=== PATIENT | female | born 1975 | race Caucasian/White ===

== ENCOUNTER → 2019-01-26 11:58 | Outpatient (CLI) | payer OTHER, SELFPAY ==
[2019-01-10 15:37] VITALS: BMI 53.1
== END ==
PROVIDERS: Referring Provider Internal Medicine Cardiovascular Disease; Visit Provider Internal Medicine Cardiovascular Disease
DX: I45.10 Unspecified right bundle-branch block (principal); R94.31 Abnormal electrocardiogram [ECG] [EKG]; Z82.49 Family history of ischemic heart disease and other diseases of the circulatory system
CPT/HCPCS: 93017

== ENCOUNTER → 2019-01-30 16:37 | Outpatient (CLI) | payer OTHER, SELFPAY ==
[2019-01-10 15:37] VITALS: BMI 53.1
--- NOTE | 2019-01-30 09:22 | STRESSREP ---
Stress Test Report Treadmill EKG report: Resting EKG: Normal sinus rhythm, normal axis, normal intervals, no evidence of previous myocardial infarction. Treadmill EKG: Patient exercise according to a Hector protocol for 4 minutes and 30 seconds achieving a maximum workload of 6.40 METS. Patient's resting heart rate was 82 bpm and gabriel to maximum 157 bpm. This represents 89% of the maximal age-predicted heart rate. Resting blood pressure was 142/88, and gabriel to maximum of 172/92. Test was terminated due to the attainment of target heart rate, dyspnea, and chest discomfort. During exercise the patient's heart rate increased as expected. Patient had evidence of upsloping ST segment depression which did not quite reach criteria for ischemia. No arrhythmias noted. Conclusions: Abnormal, adequate treadmill EKG. Positive for ischemia by chest pain criteria. No arrhythmias noted. Below average exercise capacity for age. Appropriate blood pressure response to exercise. Recommend clinical correlation or alternative mode of testing if coronary occlusive disease is strongly suspected. No complications.
[2019-01-30 17:20] LABS: Hematocrit 39.3 % (37-47); Mean Corp Hgb Conc 33.1 g/gl (32-36); Mean Corpuscular Hgb 31.2 pg (27.0-32.0); Mean Corpuscular Volume 94.2 fL (81-99); Mean Platelet Vol. 9.7 fl (6.2-12.0); Platelet Count 485 K/mm3 (150-450); RBC Distribution Width CV 14.3 % (11.6-14.6); RBC Distribution Width SD 49.1 fl (35.1-43.9); Red Blood Count 4.17 M/mm3 (4.2-5.4); White Blood Count 14.1 K/mm3 (4.4-11.0)
[2019-01-30 17:21] LABS: Scan Indicated on CBC? Y/N NO
[2019-01-30 17:30] LABS: Partial Thromboplast Time 27.7 Seconds (24.1-36.2)
[2019-01-30 17:53] LABS: Anion Gap 8 (5-15); BUN 11 mg/dL (7-18); BUN/Creat Ratio 13.1 RATIO (10-20); Chloride 105 mmol/L (98-107); Creatinine, Serum 0.84 mg/dL (0.55-1.02); EST Glomerular Filtration Rate 78 mL/min (>60); Est Glom Filt Rate - Afr Amer 94 mL/min (>60); Glucose 104 mg/dL (74-106); Potassium 3.8 mmol/L (3.5-5.1); Sodium Level 139 mmol/L (136-145)
== END ==
PROVIDERS: Referring Provider Internal Medicine Cardiovascular Disease; Visit Provider Internal Medicine Cardiovascular Disease
DX: R94.31 Abnormal electrocardiogram [ECG] [EKG] (principal); R94.39 Abnormal result of other cardiovascular function study; R07.9 Chest pain, unspecified; Z82.49 Family history of ischemic heart disease and other diseases of the circulatory system
CPT/HCPCS: 36415; 80048; 85027; 85610; 85730

== ENCOUNTER 2019-02-08 08:00 | Day surgery (SDC) | payer OTHER, SELFPAY ==
[2019-01-10 15:37] VITALS: BMI 53.1
--- NOTE | 2019-01-10 16:13 | HP_ITS ---
HPI HPI Surgical H&P: Yes Details: Mrs. Enciso is a very pleasant 43-year-old morbidly obese female with a history of obstructive sleep apnea, history of Jonah fundoplication for what sounds like a hiatal hernia surgery, history of splenectomy, history of tubal ligation and history of cholecystectomy. She was originally referred to us for abnormal EKG. Specifically the patient complained of mid back pain on and off for the past 6 months, which last a few seconds to a few minutes and occasionally an hour or 2, but no overt chest pain. She denies any exertional symptoms, reports that it is improved with ibuprofen and chiropractor manipulation. An EKG was performed at [facility] in [place] on 12/19/18 which showed normal sinus rhythm, normal axis, normal intervals, and incomplete right bundle branch block which apparently was new. Patient states the pain is worse at night when she is laying down and can wake her up at night. She does have a strong family history of cardiac disease. Specifically her mother of an acute myocardial infarction at age 53, although she was a smoker. In addition her father 3 weeks after his bypass surgery at age 55 but also was a smoker. She has 1 sister who is alive and well. Patient herself has never smoked. Patient underwent a 2D echo with Doppler at an outside facility on 12/29/18 which an EF of 60%, unable to quantitate RVSP due to lack of tricuspid regurgitation. In her office today her blood pressure is 130/70, and pulse is 96 and regular. Her physical exam demonstrates no point tenderness along her spine, I am unable to replicate her back pain with manipulation, clear lungs bilaterally, regular rate and rhythm, normal S1/S2, no S3 or S4. No edema noted. Lipids are pending. EKG dated 12/19/18 shows normal sinus rhythm, normal axis, normal intervals, incomplete right bundle branch block, no previous myocardial infarction noted. Intake Vital Signs 01/10/19 Height 5 ft 01/10/19 Weight: 272 lb 01/10/19 Body Mass Index (BMI) 53.1 01/10/19 Blood Pressure 130/70 H 01/10/19 Blood Pressure Location Lt brachial 01/10/19 Blood Pressure Position Sitting 01/10/19 Respiratory Rate 20 H 01/10/19 Pulse Rate 96 01/10/19 Pulse Source Auscultation Intake Visit Reasons: RBBB, FAMILY HX (DR SONJA SHORE) Bus Washer Required: No Accompanied by: Sister Is patient in pain?: No Allergies Penicillins Allergy (Intermediate, Verified 01/10/19 15:38) Rash, itching cefdinir Adverse Reaction (Intermediate, Verified 01/10/19 15:38) Diarrhea Medications albuterol sulfate HFA 90 mcg/actuation aerosol inhaler 2 puff INHALATION Q6H PRN 01/04/19 [History Confirmed 01/04/19] ibuprofen 200 mg tablet 200 mg PO TID-QID PRN 01/04/19 [History Confirmed 01/04/19] multivitamin tablet 1 tab PO DAILY 01/04/19 [History Confirmed 01/04/19] PFSH Medical History Abnormal EKG (Acute) Incomplete right bundle branch block (Acute) Obstructive sleep apnea (Chronic) Intestinal malabsorption (Chronic) GERD (gastroesophageal reflux disease) (Chronic) Diverticulitis (Chronic) Social History Smoking Status: Never smoker ROS Const Const: Positive for other (Referred by PCP for incomplete RBBB, ST changes. Normal echo.); negative for fatigue, weakness, body ache, fever(s), headache(s), chills, frequent falls, night sweats, daytime sleepiness, difficulty sleeping, excessive sweating, weight gain, weight loss, increased appetite, poor appetite or anorexia Eyes Eyes: Negative for blind spots, loss of peripheral vision, transient loss of vision, blurry vision, change in vision, double vision, floaters, tunnel vision or other ENT ENT: Negative for headache(s), dizziness, hearing loss, tinnitus, Nosebleed/epistaxis, balance problems, post nasal drip, lip swelling, tongue swelling, bleeding gums, hoarseness, neck pain, dry mouth or other Cardio Chest Pain: No (Does feel pain in middle of back, stabbing) Frequency: daily (usually in am upon awakening but has other times also), more than once a day Character: sharp Duration: brief (lasts seconds to minutes but sometimes about an hour) Exacerbation: other (spontaneous) Relieving: other (spontaneous) Palpitations: Yes feels like its: fast Edema: Bilateral (feet get puffy by end of day. No leg edema) Muscle aches with walking: None Resp Respiratory: Positive for SOB with activity (Has GERD and contributes it to that.); negative for SOB at rest, SOB orthopnea\SOB lying down, Cough, Coughing up blood/hemoptysis, chest congestion, pain on inspiration, snoring, stridor, wheezing, crackles, paroxysmal nocturnal dyspnea or other GI GI: Negative nausea, vomiting, heartburn, constipation, belching, bloating, cramping, vomiting blood/hematemesis, bright, red blood in stools, black,tarry stools, loose stools, Difficulty Swallowing or other : Negative for hematuria, frequent nighttime urination/ nocturia, erectile dysfunction or abnormal vaginal bleeding Musc Musc: Negative for muscle aches/ myalgia, muscle weakness, joint pain or balance problems Skin Skin: Negative redness, non-healing lesions, rash, unusual bruising, skin ulcer, wounds, jaundice or other Neuro Neuro: Negative for dizziness, lightheadedness, near syncope, syncope, orthostatic symptoms, frequent falls, headache(s), weakness, confusion, memory loss, restless legs, blurry vision, double vision, vertigo, seizures, lack of coordination or other Cameron Hematologic/Lymphatic: Negative for easy bleeding, easy bruising, enlarged lymph nodes or other Endo Endo: Negative for fatigue, cold intolerance, heat intolerance, excessive sweating, flushing, increased thirst/drinking, increased hunger, hair loss, hair growth or other Psych Psych: Negative for anxiety, depression, thoughts of harming anyone, thoughts of harming yourself, visual hallucinations, panic attacks or audible hallucinations Allergy Allergy/Immunology: Negative for throat swelling, Negative for tongue swelling, Negative for hives, Negative for rash, Negative for lip swelling Cardiology Exam Const Appearance: cooperative, healthy appearing and no acute distress Nutritional Appearance: well nourished Orientation: alert, oriented x3 and oriented to person Head Head: normal to inspection, normocephalic and atraumatic Nose: external nose normal Face and Sinus: face symmetric Mouth: oral mucosae normal Eyes General: appearance normal, both eyes and all related structures Eyelids: eyelids normal Conjunctivae: conjunctivae normal Pupils: PERRL and normal by confrontation EOM: EOM intact bilaterally Neck Neck: normal visual inspection and full ROM Carotids: normal carotid upstroke Chest Chest inspection: normal inspection of the chest Auscultation: Bilateral: Clear to Auscultation Cardio Palpation: normal PMI Rate: regular rate Rhythm: regular rhythm Heart sounds: S1 normal and S2 normal GI GI: normal to inspection, no hepatosplenomegaly and bowel sounds present Neuro General: alert, awake, oriented x3, CN's II-XI intact bilaterally and moves all extremities Skin Skin: no rashes or lesions noted Extremities Pulses: Normal: Right Femoral Pulse, Left Femoral Pulse, Right Dorsalis Pedis Pulse, Left Dorsalis Pedis Pulse, Right Posterior Tibial Pulse, Left Posterior Tibial Pulse, Right Radial Pulse, Left Radial Pulse Lower Extremity Edema: None: Bilateral Psych Psychological: normal affect Assessment & Plan 1. Abnormal EKG R94.[address] and T wave changes Plan 1. Abnormal EKG: Patient has no exertional chest pain, angina, or exertional back pain symptoms. Her symptoms in her back appear to be more related to recumbency and may be a byproduct of previous hiatal hernia surgery or intrinsic degenerative joint disease of her spine. Nonetheless the patient is a significant premature coronary artery disease history in her father and mother, both of which she was smoked. The patient is a non-smoker. In order to better evaluate the patient's risk I recommended that she undergo a treadmill echocardiogram to evaluate for possible ischemia. Patient states that she can walk on a treadmill without difficulty. If this is grossly abnormal for ischemia, she may require a diagnostic coronary angiogram. Would not recommend baby aspirin at this time. If her stress test is negative I would refer her to her primary care physician for possible neurological consult and/or MRI of her spine to determine if she has any issues with her spine. Patient may also require a CT scan of her chest to determine if she has had a failed hiatal hernia surgery repair to explain some of her back pain. 2. Return office in 6 months. This note was generated using a voice recognition system and there may be incorrect words, spelling or punctuation that were not noted when reviewing the office note prior to saving. Orders Orders: Lipid Profile Today Liver Profile Today Stress Test Echo w/o Contrast Today Plan Detail Follow Up +6M (Mayito) Coding Level of Care Code Off vis,new,level 4 Diagnoses Abnormal EKG R94.31 Coding Level of Care Code Off vis,new,level 4 Diagnoses Abnormal EKG R94.31 01/10/19 1603 <Electronically signed by Nicolás Edmond MD> Date Nicolás Edmond MD
[2019-02-07 14:32] VITALS: BMI 53.1
[2019-02-08 09:02] LABS: Internal QC Validated? YES +Cl - CLEAR BKGD
[2019-02-08 09:11] LABS: Pregnancy, Serum, hCG Quali. NEGATIVE Negative
--- NOTE | 2019-02-08 10:34 | CL.D_ITS ---
Patient Name: DAVID AUSTIN Study Date: 02/08/2019 Performing: Nicolás Edmond MD Ht: 59.84 inches 152 cm : 1975 Wt: 271.17 lbs 123 kg Age: 44 Gender: female BSA: 2.12 PROCEDURE(S) PERFORMED PP36-[id number]/COR/LV CLINICAL PROFILE AND INDICATIONS Indications: New Onset Angina <= 2 months, Evaluation for Exercise Clearance, Suspected CAD Heart Failure: None Stress/Imaging Stress Echocardiogram: Yes Result: Positive Low RiskStress Echocardiogram: Positiv e Low Risk Angina Classification Anginal Classification w/in 2 Weeks: CCS I CAD Presentations: Symptom unlikely to be ischemic. Comorbidities/Risk Factors: Hypertension CONCLUSIONS Normal LV size, wall motion,and systolic function Normal Left Ventricular systolic function LVEF: by LV gram 65 % Normal Left Ventricular End Diastolic Pressure RECOMMENDATIONS No recommendations -> Normal findings D/c asa and plavix,. Begin exercise program. DESCRIPTION OF PROCEDURE The patient arrived to the procedure lab. The risks and benefits of the procedure as well as a full d escription of our services here and current unavailability of surgical backup were fully explained to the patient and/or their significant other prior to the catheterization. The Timeout was completed, verifying the correct patient and procedure. The patient's procedural site was prepped and draped in the usual fashion. Local anesthetic was given subcutaneously to right groin region with Lidocaine 2%. Using a modified Seldinger technique, arterial access was obtained via the right femoral artery, a 4 Fr sheath was inserted Left Coronary Artery selective angiography was performed in multiple views us ing a 4 Fr. JL5 catheter. Right Coronary Artery selective angiography was then performed in multiple views using a 4 Fr. 3DRC catheter. Left Ventriculography was performed in MCNEIL projection using a 4 Fr . Pigtail catheter. LV to AO pullback pressures were then recorded.The arterial sheath was pulled and manual compression applied until hemostasis is achieved. CORONARY ANGIOGRAPHY DOMINANCE: Left Dominant LEFT HEART ASSESSMENT Left Ventricular Ejection Fraction: by LV Gram 65 % Normal LV wall motion Normal Left Ventricular systolic function Normal Left Ventricular systolic function LEFT MAIN: Angiographically normal LEFT ANTERIOR DESCENDING ARTERY: Angiographically normal CIRCUMFLEX ARTERY: Angiographically normal RIGHT CORONARY ARTERY: Angiographically normal COMPLICATIONS No Complications PROCEDURE MEDICATIONS Oxygen: 2 L/min via nasal cannula SUMMARY OF HEMODYNAMIC DATA Time AIR REST ECG 08:36:07 AO 123/73 (94) SA 10:12:49 LV 147/-16, 11 10:18:18 LV 149/-16, 9 10:18:24 LVp 152/-18, 17 10:18:28 AOp 141/71 (102) 10:18:33 Signed By Nicolás Edmond MD On 02/08/2019 10:32:54 Nicolás Edmond MD
== END 2019-02-08 14:45 | disposition home or self-care (01) ==
LOC: CLSP 08:01
PROVIDERS: Referring Provider Internal Medicine Cardiovascular Disease; Visit Provider Internal Medicine Cardiovascular Disease
DX: R94.31 Abnormal electrocardiogram [ECG] [EKG] (principal); I45.10 Unspecified right bundle-branch block; I10 Essential (primary) hypertension; E66.01 Morbid (severe) obesity due to excess calories; Z68.43 Body mass index [BMI] 50.0-59.9, adult; Z82.49 Family history of ischemic heart disease and other diseases of the circulatory system
CPT/HCPCS: 84703; 93458; J7040; C1769; C1894; Q9967

== ENCOUNTER → 2019-07-14 10:41 | Outpatient (CLI) | payer OTHER, SELFPAY ==
[2019-02-07 14:32] VITALS: BMI 53.1
[2019-07-14 12:05] LABS: AST(SGOT) 14 U/L (15-37); Alanine Aminotransfer ALT/SGPT 27 U/L (13-56); Alkaline Phosphatase 109 U/L (45-117); Bilirubin, Direct 0.09 mg/dL (0.00-0.30); Cholesterol 207 mg/dL (200); Globulin 4.5 g/dL (2.2-4.2); High Density Lipoprotein 60 mg/dL; Protein, Total 7.5 g/dL (6.4-8.2); Triglycerides 136 mg/dL; Very Low Density Lipoprotein 27 mg/dL (5-40)
== END ==
PROVIDERS: Referring Provider Internal Medicine Cardiovascular Disease; Visit Provider Internal Medicine Cardiovascular Disease
DX: E78.5 Hyperlipidemia, unspecified (principal)
CPT/HCPCS: 36415; 80061; 80076

== ENCOUNTER 2020-01-22 05:59 | Day surgery (SDC) | payer OTHER, SELFPAY ==
[2019-08-04 13:18] VITALS: BMI 52.5
--- NOTE | 2020-01-18 16:49 | EKG12_ITS ---
Test Reason : PREOP Blood Pressure : / mmHG Vent. Rate : 087 BPM Atrial Rate : 087 BPM P-R Int : 122 ms QRS Dur : 080 ms QT Int : 378 ms P-R-T Axes : 049 -07 007 degrees QTc Int : 454 ms Normal sinus rhythm Nonspecific ST abnormality Abnormal ECG Confirmed by NATHALIE POOLE, COSTA ([id number]), school photograph editor BANDAR PLUNKETT ([id number]) on 01/22/2020 11:01:33 AM Referred By: Lenin Werner Confirmed By:MERE ZELAYA MD
[2020-01-18 17:15] LABS: Hematocrit 40.1 % (37-47); Hemoglobin 13.1 g/dL (12.0-15.0); Mean Corp Hgb Conc 32.7 g/dL (32-36); Mean Corpuscular Hgb 30.5 pg (27.0-32.0); Mean Corpuscular Volume 93.5 fL (81-99); Mean Platelet Vol. 9.2 fl (6.2-12.0); Platelet Count 517 K/mm3 (150-450); RBC Distribution Width CV 14.3 % (11.6-14.6); RBC Distribution Width SD 48.8 fl (35.1-43.9); Red Blood Count 4.29 M/mm3 (4.2-5.4); White Blood Count 15.6 K/mm3 (4.4-11.0)
[2020-01-18 17:45] LABS: ALB/GLOB Ratio 0.7 RATIO (0.9-2.4); AST(SGOT) 14 U/L (15-37); Alanine Aminotransfer ALT/SGPT 20 U/L (13-56); Albumin, Serum 3.4 g/dL (3.2-5.0); Alkaline Phosphatase 126 U/L (45-117); Anion Gap 9 (5-15); BUN 13 mg/dL (7-18); BUN/Creat Ratio 18.1 RATIO (10-20); Calcium,Total 9.5 mg/dL (8.5-10.1); Chloride 105 mmol/L (98-107); Creatinine, Serum 0.72 mg/dL (0.55-1.02); EST Glomerular Filtration Rate 93 mL/min (>60); Est Glom Filt Rate - Afr Amer 113 mL/min (>60); Globulin 4.6 g/dL (2.2-4.2); Glucose 73 mg/dL (74-106); Partial Thromboplast Time 28.7 Seconds (24.1-36.2); Potassium 3.8 mmol/L (3.5-5.1); Sodium Level 138 mmol/L (136-145)
--- NOTE | 2020-01-21 20:56 | PCM.HP.BLA ---
History and Physical Date of Admission: 01/22/20 Surgical History and Physical Trinity Enciso, a 44 year old female 1 0 0 0 1, presents for RAVH/BSO on January 22, 2020 at 7:30. -- Menorrhagia; Complex EM Hyperplasia -- Menorrhagia which began months ago. Trinity claims it started gradually and has been present 9 days. It occurs every day. It is located in the Uterus. Severity is worsening; Associated signs and symptoms are pelvic cramping and fatigue. ULTRASOUND: UTERUS: 8.8 x 4.3 x 4.8 cm ; ENDOMETRIAL ECHO: 0.9 cm. ; RIGHT OVARY: 4.1 x 2.8 x 2.8 cm and contains a 2.7 x 2.2 x 2.2 cm simple cyst; LEFT OVARY: Not seen vaginally or abdominally. EMBx showed complex EM hyperplasia without atypia. MEDICATIONS HISTORY: Patient is also takin. MVI, qd 2. metformin ER 500 mg tablet,extended release 24 hr, 3 tablets po daily ALLERGIES: Pcn, Rash, Penicillins, Rash, Ceftin and Hives and/or rash Infections - none Illnesses - depression, IBS, Accidents - no injuries of consequence Hospitalizations - see surgery Review of Systems: GENERAL - Denies fever, or chills SKIN - Denies skin changes EYES - Denies visual changes EARS - Denies difficulty hearing NOSE - Denies nasal congestion or bleeding MOUTH - Denies sore throat or difficulty swallowing NECK - Denies pain or swelling RESPIRATORY - Denies shortness of breath or wheezing CARDIOVASCULAR - Denies palpitations or chest pain GASTROINTESTINAL - Denies nausea, vomiting, diarrhea, constipation GENITOURINARY - Denies dysuria, frequency of urination, incontinence of urine MUSCULOSKELETAL - Denies joint or muscle pain NEUROLOGICAL - Denies localized numbness or weakness PSYCHIATRIC - Denies depression or anxiety ENDOCRINE - Denies heat or cold intolerance, weight loss or gain HEMATO-IMMUNOLOGIC - Denies excessive bleeding with cuts SOCIAL HISTORY: Alcohol Use - denies drinking Smoking - denies smoking Diet - no special diet Lifestyle - moderate stress lifestyle and Exercise - minimal Seat Belt Use - always Employer - [employer] Residence Job Description - director of academic Illicit Drug Use - denies use of street drugs Sexual Activity - Residence - owns a home Hours Worked - 35 Spouse-Sig Other Name - Dinesh Spouse-Sig Other Occupation - Factory Children Name(s) - Ale (11/2006) Control - Prior Tubal FAMILY HISTORY: Family history of Heart Disease. MENSTRUAL HISTORY: LMP Known?- Approximate-Month Known Amount/Duration - 3-4 days, Regularity - Irregular, Frequency - variable days, Prior Menses - 11/29/2015, LMP - 01/15/20, Age Onset Menarche - 12 PAST PREGNANCIES: Total Pregnancies - 1; Full Term Pregnancies - 1; Premature - 0; Abortions, Induced - 0; Abortions, Spontaneous - 0; Ectopics - 0; Multiple Births - 0; Living Children - 1 SURGICAL HISTORY: 1. 11/29/2006 and Tubal ; Lenin Werner M.D. 2. Rt ear skin graft-95 3. frankie-1999 4. 2010 Splenectomy 5. 2010 Hernia Repair PHYSICAL EXAM BP- 132/80 Sitting, Right arm, large cuff Weight- 276.0 lbs Height- 61.5 inch BMI:51.41 CONSTITUTIONAL - NAD, well nourished, and well developed SKIN - No rash, lesions, or ulcers HEENT - normocephalic, atraumatic, sclerae anicteric LUNGS - normal respiratory rate and rhythm ABDOMEN - Without hepatosplenomegaly, distention, masses, rebound, or guarding; normal bowel sounds; has a hernia EXTREMITIES - No edema or calf tenderness NEUROLOGICAL - normal gait, normal balance, normal motor PSYCHIATRIC - A and O to time, place, person, mood and affect External Genital Vagina - non-tender without lesions Urethra/Urethral Meatus - non-tender Bladder - non-tender Vagina - vaginal ivy are pink and moist without loss of rugae and no evidence of atropy Cervix - without cervical motion tenderness and has normal size and features without evident lesions Uterus - enlarged uterus 8 wks, wt 125-150 g Adnexa - clear without masses or tenderness ASSESSMENT/PLAN: Menorrhagia, complex EM hyperplasia. Discussed options for treatment and patient desires proceeding with RAVH/BSO. Discussed RBAs including need for HRT and open procedure and all questions answered. Essential Procedure Criteria Procedure Essential: Yes Criteria Note: On 12/12/2019 the [facility] ([facility]) Public Order signed by [facility] Director Hiwot Dean M.D., regarding the Management of Non-Essential Surgeries and Procedures for the purpose of preserving Personal Protective Equipment (PPE) and critical hospital capacity and resources within [place] went into effect as of 12/13/2019 at 5:00PM. According to the [facility] Public Order: This action will remain in full force and effect until the State of Emergency declared by the Governor no longer exists or the Director of the [facility] rescinds or modifies this Order.. This [facility] order stated all non-essential or elective surgeries and procedures that utilize PPE should be delayed unless there is undue risk to the current or future health of a patient. After reviewing the aforementioned [facility] Public Order and the patients clinical case, I have determined that the scheduled procedure meets the criteria to go forward. Risk to Patient if Procedure Delayed: Risk of rapidly worsening to severe symptoms
[2020-01-22] VITALS (12 sets, daily range): BP systolic 111–146; BP diastolic 53–81; PULSE 64–88; RESP 16–18; TEMP 36.2–37.1; O2SAT 94–100; BMI 51.0
--- NOTE | 2020-01-22 | HYST_PTH ---
PATIENT: DAVID AUSTIN LOC: [facility] [place] U#:[id number] AGE/SX: 44/F ROOM: RE01/22/[address]: Dr. Lenin Werner MD : 1975 BED: DIS: 01/23/2020 SPEC #: [id number] RECD: 01/22/20 13:46 STATUS: JOHNIE MARTIN #: [id number] BAUDILIO: 01/22/20 00:[address]: Lenin Werner DEPT: SURGICAL PATHOLOGY RECD BY: Kishor Santos ENTERED: 01/23/20 12:01 SP TYPE: HYSTERECT OTHR DR: Sandhya Candelario, ELSI-Prema Tissues: Uterus, NOS Procedures: Surgery Specimen Level V HEADER OPERATION: Laparoscopic robotic assisted vaginal hysterectomy PRE-OP DIAGNOSIS: Menorrhagia, complex endometrial hyperplasia TISSUE SUBMITTED: Uterus, cervix, bilateral fallopian tubes and ovaries MICROSCOPIC DIAGNOSIS Uterus, cervix, bilateral fallopian tubes and bilateral ovaries, vaginal hysterectomy and bilateral salpingo-oophorectomy: Cervix - no pathologic diagnosis. Endometrium - disordered proliferative endometrium to simple endometrial hyperplasia without atypia. Myometrium - intramural leiomyoma (1.5 cm in diameter). - Focal adenomyosis. Bilateral fallopian tubes - focal hematosalpinx, status post tubal occlusion. Bilateral ovaries - physiologic follicular cysts. Bilateral paratubal cysts. SJ:rg 01/24/20 COMMENT Case has been reviewed in consultation with Dr. Darnell who concurs with the above diagnosis. IDC:AM MICROSCOPIC DESCRIPTION Slides are reviewed. GROSS DESCRIPTION Received in fixative is one container labeled with the patient's name and designated uterus, cervix, bilateral fallopian tubes and bilateral ovaries. The specimen consists of a hysterectomy specimen consisting of uterus with cervix, attached bilateral fallopian tubes, right ovary and detached left ovary. The uterus with cervix weighs 126 gm and measures 10.5 x 7 x 5 cm. The serosal surface is stock, glistening. The cervix is partially disrupted. The endocervical canal measures 3.5 cm in length. The endocervical mucosa is stock, glistening and unremarkable. The external os is oval in contour. The triangular endometrial cavity measures 4.5 cm in length and up to 3 cm in width. The endometrium is stock, glistening without any mass lesion and measures <0.1 cm in thickness. Sections of the uterine wall reveal one nodular mass measuring 1.5 cm in diameter. Sections of this mass reveal stock whorled cut surfaces without areas of hemorrhage, necrosis or cystic degeneration. The uninvolved uterine wall measures up to 2.5 cm in width. The right fallopian tube measures 6 cm in length and 0.5 cm in diameter. The fimbrial end is identified. The fallopian tube is interrupted in the middle consistent with previous tubal occlusion. A Filshie clip is noted in the proximal portion which appears intact. The proximal portion shows focally dilated lumen. A paratubal cyst is also noted measuring 0.7 cm in greatest dimension. It is filled with clear fluid. The right ovary measures 2 x 1 x 1 cm. Sections reveal a cyst filled with clear fluid measuring 1 cm in greatest dimension. The cyst wall is smooth without any papillation. The left fallopian tube measures 6 cm in length and up to 0.5 cm in diameter. It has a similar appearance to right. A Filshie clip is also noted in the proximal portion which appears intact. A paratubal cyst is also noted measuring 1.5 cm in greatest dimension. The soft to cystic left ovary measures 2 x 1.5 x 1 cm. Sections reveal a cyst with clear fluid measuring 1.5 cm in greatest dimension. Plate Molder sections are submitted in 14 cassettes as follows: 1 - anterior cervix, 2??posterior cervix, 3 & 4 - anterior uterine wall, 5 & 6 - posterior uterine wall, 7-9 - posterior uterine wall, entire endometrium is submitted, 10 - nodular mass, 11 - right fallopian tube and paratubal cyst, 12??right ovary, 13 - left fallopian tube and paratubal cyst, 14 - left ovary. / RAHUL:alyson 01/23/20 TC:5 CPT: 48151
[2020-01-22] MEDS: Lactated Ringers 1,000 ML 100 ML IV ×2 (06:53→06:55)
--- NOTE | 2020-01-22 07:41 | OP.PCM_ITS ---
Report of Operation Date of Procedure: 01/22/20 Pre-Operative Diagnosis: Menorrhagia, Complex Endometrial Hyperplasia Post-Operative Diagnosis: Menorrhagia, Complex Endometrial Hyperplasia, Adhesions Surgery/Procedure Performed:: Robotic Assisted Vaginal Hysterectomy and Bilateral Salpingo-Oophorectomy, Lysis of Adhesions Description of Surgical Findings:: 8 cm uterus with normal-appearing fallopian tubes and ovaries. Dense adhesions of the omentum to the anterior abdominal wall. identification technician: Elham Qureshi Type of Anesthesia:: General - Endotracheal Anesthesiologist: Radha Otero Specimen's removed: Uterus and bilateral fallopian tubes and ovaries Drains: Cedeno to straight drain Estimated Blood Loss (mL): Minimal Fluids Replaced: Crystalloid Description of Procedure: Surgeon: Lenin Werner MD, FACOG Indication: This is a 44 year old patient who has been having problems with menorrhagia and complex endometrial hyperplasia. Conservative measures have not been helpful. The patient has been counseled regarding the risks, benefits and alternatives of this procedure including the possibility of bleeding, infection, and injury to surrounding structures such as bowel bladder and all questions were answered. She understands that if BSO is done that she will need to be on HRT for an indefinite period of time. Procedure: Pt taken to the operating room where, after induction of general anesthesia, the patient was prepped and draped in the usual sterile fashion and placed on a non-slip Huggy-u-vac device. Trendelenburg test was satisfactory. Bladder was drained of urine with a Cedeno catheter which was left in place. Anterior cervix grasped and cervix was dilated to about 3-4 mm. Uterus sounded to 9.5 cms. 0-Vicryl suture was placed at the 3:00 and 9:00 position of the cervix. A small Advincula [employer] Chemist Uterine Manipulator was then placed in the uterus and attention was turned to the laparoscopic portion of the procedure. Ropivocaine 0.5% was injected approximately 12 cm right lateral to the umbilicus and an 8 mm robotic port was introduced directly. The adhesions were visualized to be primarily in the midline and given this a 5 mm suprapubic port was placed under direct visualization. Using a probe from the 5 mm port some of the adhesions were taken down bluntly to allow visualization of the anterior abdominal wall which allowed insertion of the right robotic port approximately 12 cm lateral to the umbilicus and an umbilical port approximately 1-2 cm superior to the umbilicus. A 5 mm left upper quadrant port was introduced and airseal insufflation with CO2 was started. The above findings were noted. Robot was docked without difficulty and attention turned to the robotic portion of the procedure. Approximately 34 cc of Ropivicaine was used. Omental adhesions were taken down using cautery and sharp dissection and bilateral infundibulopelvic ligaments/mesosalpinx were ligated with 35 urias bipolar coagulation to the level of the round ligament. The posterior aspect of the cervix was identified and then opened for about 1 cm using 25 watt monopolar cautery. Bladder flap was opened and divided to the level of the round ligaments using monopolar cautery. Progressive bites were then ligated on each side of the cervix with 35 urias bipolar cautery to the uterine arteries. The anterior vaginal mucosa was entered and cervix circumscribed with monopolar cautery. Uterus and attached tubes and ovaries were removed through the vagina. Vaginal cuff was closed first with 0-Vicryl Billie stitches placed at each angle followed by closure of the mid-cuff with 0-Monocryl V-lock suture in two layers. Pelvis was copiously irrigated with saline and the right ureter was noted to peristalse. Robot was undocked and trocars were removed with as much gas as possible. Incisions were closed with 4-0 Monocryl subcuticular sutures and incisions covered with steri-strips. The patient tolerated the procedure well and was taken to the recovery room in satisfactory condition. Sponge, instruments and needle counts were all correct. There were no apparent complications of the surgery. Cefotan 2 gms IV was given prior to the procedure. Estimated Blood Loss: Minimal Specimen to Pathology: Uterus and bilateral fallopian tubes and ovaries Grafts/Implants Used: None - Complications None - Admit VTE Documentation VTE Present on Admission: Yes VTE Mechan Device Prophylaxis: SCD's VTE Pharm Prophylaxis ordered?: Yes
--- NOTE | 2020-01-22 07:54 | DCINST_ITS ---
Discharge Diet: No Restrictions Discharge Activity: Return to Normal Activity, May Not Drive - while taking narcotic pain medications., May Shower, May Take a Tub Bath May resume sexual activity in: 6-8 weeks Call your doctor if your incision/area has: Continuous Slow Oozing, Sudden Inc reased Bleeding, Increased Pain/ Swelling, Increased Redness, Foul Smelling Discharge Call your doctor if you observe: Fever of 101 or Higher, Inability to urinate, Inability to have a bowel movement, Using more than one pad per hour Allergies/Adverse Reactions: Allergies Penicillins Allergy (Intermediate, Verified 01/18/20 11:04) Rash, itching cefdinir Adverse Reaction (Intermediate, Verified 01/18/20 11:04) Diarrhea Medications to take at Discharge multivitamin 1 tab PO DAILY 01/04/19 Ascorbic Acid [Vitamin C] 500 mg PO DAILY 01/18/20 Cholecalciferol (Vitamin D3) [Vitamin D3] 4,000 unit PO DAILY 01/18/20 Metformin HCl [Glucophage] 1,500 mg PO DAILY 01/18/20 Zinc Amino Acid Chelate [Zinc] 50 mg PO DAILY 01/18/20 Docusate Sodium [Colace] 100 mg PO BID PRN PRN #60 cap 01/22/20 Estradiol 2 mg PO DAILY #100 tab 01/22/20 Oxycodone [Oxyir] 5 mg PO Q6H PRN PRN 7 Days #20 tablet 01/22/20 The following prescriptions were given: Docusate Sodium [Colace] 100 mg PO BID PRN PRN #60 cap PRN Reason: Constipation Transmission Status: Pending to [id number] Estradiol 2 mg PO DAILY #100 tab Transmission Status: Pending to [id number] Oxycodone [Oxyir] 5 mg PO Q6H PRN PRN 7 Days #20 tablet PRN Reason: Pain Score 6-07/06 Transmission Status: Received by [id number] Primary Care Physician: Sandhya Candelario NP-C [Primary Care Provider] - Test Results: Test results from this visit will be discussed in further detail at your follow- up appointment, if applicable. Please Follow Up With: Lenin Werner MD When: 2 to 3 weeks
[2020-01-22] MEDS: Ropivacaine 0.5% 30 ML Vial ×2 (08:15→08:45)
[2020-01-22] MEDS: Dextrose 5%-Lactated Ringers 1,000 ML 150 ML IV ×2 (12:15→18:44)
[2020-01-22] MEDS: Heparin Injection (Vial) 5,000 UNIT/ML VIAL 5000 UNIT SC (16:29)
[2020-01-22] MEDS: Estrogens,Conj. 1.25 MG Tablet PO (16:29)
[2020-01-22] MEDS: Ketorolac 30 MG/ML Syringe IV ×2 (16:30→21:43)
[2020-01-22] MEDS: Docusate Sodium 100 MG Capsule PO (16:45)
[2020-01-22] MEDS: Ondansetron 4 MG/2 ML Vial IV (17:28)
[2020-01-22] MEDS: Enoxaparin 40 MG/0.4 ML Syringe SC (18:43)
[2020-01-23] MEDS: Dextrose 5%-Lactated Ringers 1,000 ML 150 ML IV (01:08)
[2020-01-23] MEDS: Ketorolac 30 MG/ML Syringe IV ×2 (04:12→09:45)
[2020-01-23 04:19] VITALS: BP 155/77; PULSE 85; RESP 18; TEMP 37.2; O2SAT 94
[2020-01-23 06:18] LABS: Hematocrit 36.6 % (37-47); Hemoglobin 11.9 g/dL (12.0-15.0); Mean Corp Hgb Conc 32.5 g/dL (32-36); Mean Corpuscular Hgb 30.7 pg (27.0-32.0); Mean Corpuscular Volume 94.6 fL (81-99); Mean Platelet Vol. 9.2 fl (6.2-12.0); Platelet Count 458 K/mm3 (150-450); RBC Distribution Width CV 14.4 % (11.6-14.6); RBC Distribution Width SD 49.5 fl (35.1-43.9); Red Blood Count 3.87 M/mm3 (4.2-5.4); White Blood Count 16.1 K/mm3 (4.4-11.0)
[2020-01-23 06:37] LABS: EST Glomerular Filtration Rate 95 mL/min (>60); Est Glom Filt Rate - Afr Amer 115 mL/min (>60); Estimated Creatinine Clearance 76.58 ml/min
[2020-01-23 07:50] VITALS: O2SAT 96
[2020-01-23] MEDS: Estrogens,Conj. 1.25 MG Tablet PO (08:15)
[2020-01-23] MEDS: Enoxaparin 40 MG/0.4 ML Syringe SC (08:15)
[2020-01-23] MEDS: Docusate Sodium 100 MG Capsule PO (08:18)
--- NOTE | 2020-01-23 08:27 | PCM.PN.OB ---
Subjective: Patient without complaints. Minimal vaginal bleeding. Positive flatus. Diet tolerated well. Minimal pain. Ready to go home. Able to void on own. Objective: Wounds are clean, dry, intact. Good urine output. Hemoglobin and creatinine okay. - Physical Exam Vitals/I&O's: Vital Signs Temp Pulse Resp BP Pulse Ox 99.0 F 85 18 155/77 H 94 01/23/20 04:19 01/23/20 04:19 01/23/20 04:19 01/23/20 04:19 01/23/20 04:19 Oxygen Flow Rate (L/min) 2 Oxygen Delivery Method Room Air Weight: 274 lb 11.135 oz Body Mass Index (BMI) 51.0 Intake and Output for Last 24 Hours 01/21/20 01/22/20 01/23/20 23:59 23:59 23:59 Intake Total 4163.33 / 4163.33 2125 / 2125 Output Total 2795 / 2795 850 / 850 Balance 1368.33 / 1368.33 1275 / 1275 Laboratory Results 01/23/20 05:56: WBC 16.1 H, RBC 3.87 L, Hgb 11.9 L, Hct 36.6 L, MCV 94.6, MCH 30.7, MCHC 32.5, RDW Std Deviation 49.5 H, RDW Coeff of Quentin 14.4, Plt Count 458 H, MPV 9.2 01/23/20 05:56: Creatinine 0.70, Estim Creat Clear Calc 76.58, Est GFR (MDRD) Af Amer 115, Est GFR (MDRD) Non-Af 95 Current Medications Acetaminophen (Tylenol) 1,000 mg PO Q8H PRN PRN PRN Reason: Pain Score 1-3/10 or Fever Docusate Sodium (Colace) 100 mg PO BID PRN PRN PRN Reason: Constipation Last Admin: 01/23/20 08:18 Dose: 100 mg Documented by: Enoxaparin Sodium (Lovenox) 40 mg SC DAILY [facility] Last Admin: 01/23/20 08:15 Dose: 40 mg Documented by: Estrogens Conjugated (Premarin) 1.25 mg PO DAILY [facility] Last Admin: 01/23/20 08:15 Dose: 1.25 mg Documented by: Hydromorphone HCl (Dilaudid Inj) 0.5 mg IV Q3H PRN PRN PRN Reason: Pain Score 4-10/10 Ketorolac Tromethamine (Toradol (Bkc)) 30 mg IV Q6H [facility] Stop: 01/27/20 16:31 Last Admin: 01/23/20 04:12 Dose: 30 mg Documented by: Ondansetron HCl (Zofran) 4 mg IV Q4H PRN PRN PRN Reason: NAUSEA Last Admin: 01/22/20 17:28 Dose: 4 mg Documented by: Oxycodone HCl (Oxyir) 5 mg PO Q4H PRN PRN PRN Reason: Pain Score 4-10/10 Simethicone (Mylicon) 80 mg PO [facility] Last Admin: 01/23/20 08:15 Dose: 80 mg Documented by: Sodium Chloride () 10 - 40 ml IV UD PRN PRN Reason: SALINE FLUSH Medical Necessity - Tobacco Use Smoking Status: Never smoker Tobacco Use: Non-smoker Assessment/Plan All Active Problems (Last Reviewed 08/04/19 @ 13:24 by Meme Baldwin) FH: premature coronary heart disease (Acute) Chest pain (Acute) Abnormal stress electrocardiogram test (Acute) Abnormal EKG (Acute) Incomplete right bundle branch block (Acute) Doing well postoperative day #1 status post robotic assisted vaginal hysterectomy and bilateral salpingo-oophorectomy. Will release to home with routine instructions.
[2020-01-23] MEDS: 0.9% Saline Lock 10 ML Syringe IV (09:45)
[2020-01-23 09:54] VITALS: BP 147/89; PULSE 79; RESP 18; TEMP 36.7; O2SAT 97
== END 2020-01-23 09:55 | disposition home or self-care (01) ==
LOC: SDC 06:00 → AC 06:01 → MS3 09:08
PROVIDERS: PCP Nurse Practitioner Family; Referring Provider Obstetrics & Gynecology; Visit Provider Obstetrics & Gynecology
PROC: 0UT90ZZ Resection of Uterus, Open Approach (ICD-10-PCS; CPT 58552; principal; 2020-01-22 07:10)
DX: N85.01 Benign endometrial hyperplasia (principal); D25.1 Intramural leiomyoma of uterus; N83.8 Other noninflammatory disorders of ovary, fallopian tube and broad ligament; R94.31 Abnormal electrocardiogram [ECG] [EKG]; G47.30 Sleep apnea, unspecified; G25.81 Restless legs syndrome; Z79.84 Long term (current) use of oral hypoglycemic drugs; N92.0 Excessive and frequent menstruation with regular cycle
CPT/HCPCS: 00940; 58552; S2900; 36415; 80053; 82248; 82565; 85027; 85610; 85730; 86850; 86900; 86901; 88307; 93005; J7120; A4216; J2405

== ENCOUNTER → 2021-09-17 07:47 | Outpatient (CLI) | payer BC, SELFPAY ==
--- NOTE | 2021-09-17 07:52 | ECHOCS_ITS ---
Reason For Study: CARDIOMEGALY Procedure This was a 2D Doppler, Color Flow transthoracic echocardiogram. The study was technically difficult. Contrast injection was performed. Exam performed in department. Left Ventricle Based upon the 2D echocardiographic and contrast enhanced images obtained there appears to be grossly normal left ventricular size, wall motion, and systolic function. The estimated ejection fraction is 60 %. No evidence for diastolic dysfunction. Right Ventricle Normal RV size. Normal systolic function. Atria Normal left atrium. Normal right atrium. No doppler evidence for ASD. Mitral Valve There is no mitral annular calcification. Normal mitral valve. Trivial mitral valve insufficiency. Tricuspid Valve Normal tricuspid valve. Trivial tricuspid valve insufficiency. Right ventricular systolic pressure estimated to be 32 mmHg. Aortic Valve Trisinus/trileaflet aortic valve. Normal aortic valve. Pulmonic Valve The pulmonic valve is not well visualized. Great Vessels Normal sized aortic root. Pericardium/Pleural No pericardial effusion. Medication 22 gauge I.V. with prn adaptor inserted into right arm. Diluted definity 4.0ml given slow IV push to enhance endocardial definition. MMode/2D Measurements & Calculations LVIDd: 5.2 cm IVSd: 0.78 cm Ao root diam: 3.3 cm LVIDs: 3.6 cm LVPWd: 0.75 cm RVDd: 3.6 cm FS: 29.7 % LAV(MOD-bp): 44.9 ml LA A4 area: 18.1 cm2 LA dimension(2D): 3.7 cm LAV(MOD-bp) Indexed: 20.8 ml/m2 LAV(MOD-sp2): 46.1 ml LAV(MOD-sp4): 43.3 ml RA A4 area: 20.5 cm2 Doppler Measurements & Calculations MV E max taiwo: 123.5 cm/sec Lat Peak E' Taiwo: 11.1 cm/sec Med Peak E' Taiwo: 9.0 cm/sec MV A max taiwo: 110.2 cm/sec E/E' lat: 11.1 E/E' med: 13.7 MV E/A: 1.1 Ao V2 max: 179.6 cm/sec LV V1 max: 115.7 cm/sec PA V2 max: 118.3 cm/sec Ao max P.9 mmHg LV V1 max P.4 mmHg TR max taiwo: 269.6 cm/sec TR max P.4 mmHg ECHO/Echo Complete W/ Contrast Interpretation Summary The study was technically difficult. Contrast injection was performed. Based upon the 2D echocardiographic and contrast enhanced images obtained there appears to be grossly normal left ventricular size, wall motion, and systolic function. The estimated ejection fraction is 60 %. Trivial mitral valve insufficiency. Trivial tricuspid valve insufficiency. Right ventricular systolic pressure estimated to be 32 mmHg. No evidence for diastolic dysfunction. Ordering Physician: Lenin Plascencia Referring Physician: BIMAL RUANO Performed By: Albertina Curtis, JAMILA, RVT
== END ==
PROVIDERS: PCP Nurse Practitioner Family; Referring Provider Nurse Practitioner Family; Visit Provider Nurse Practitioner Family
DX: I51.7 Cardiomegaly (principal); Z98.890 Other specified postprocedural states
CPT/HCPCS: 93306; Q9957; A4216; C8929

== ENCOUNTER → 2022-09-30 | Outpatient (CLI) | payer BC, SELFPAY ==
[2022-09-30 09:51] LABS: AST(SGOT) 15 U/L (15-37); Alanine Aminotransfer ALT/SGPT 26 U/L (13-56); Albumin, Serum 2.9 g/dL (3.2-5.0); Alkaline Phosphatase 110 U/L (45-117); Bilirubin, Direct 0.14 mg/dL (0.00-0.30); Cholesterol 219 mg/dL (200); Globulin 4.6 g/dL (2.2-4.2); High Density Lipoprotein 70 mg/dL; Protein, Total 7.5 g/dL (6.4-8.2); Triglycerides 193 mg/dL; Very Low Density Lipoprotein 39 mg/dL (5-40)
== END | disposition home or self-care (01) ==
PROVIDERS: PCP Nurse Practitioner Family; Visit Provider Internal Medicine Cardiovascular Disease
DX: E78.5 Hyperlipidemia, unspecified (principal)
CPT/HCPCS: 36415; 80061; 80076

== ENCOUNTER → 2023-01-01 | Outpatient (CLI) | payer BC, SELFPAY ==
--- NOTE | 2023-01-01 10:49 | VDLE_ITS ---
Reason For Study: Pain RIGHT GSV is normal. CFV is compressible, spontaneous, phasic, competent and demonstrates normal augmentation. FV is compressible, spontaneous, phasic, competent and demonstrates normal augmentation. POP V is compressible, spontaneous, phasic, competent and demonstrates normal augmentation. T/P Trunk is compressible. PTV is compressible. RT PerV is compressible. Procedure This is a venous duplex using B-mode, color flow and spectral Doppler. Exam performed in department. A preliminary report was called and/or faxed to [facility]. VL/Venous Duplex US, Unilateral Interpretation Summary Deep veins of the right lower extremity are patent and compressible segmentally . There is no evidence of right lower extremity deep vein thrombosis. The right great sapheno us vein appears patent and compressible segmentally. Ordering Physician: Padmini Ruiz Referring Physician: Sandhya Candelario Performed By: Olamide Milton RVT
== END | disposition home or self-care (01) ==
LOC: CVS 10:47
PROVIDERS: PCP Nurse Practitioner Family
DX: M79.661 Pain in right lower leg (principal)
CPT/HCPCS: 93971